=== PATIENT | male | born 1980 | race Two or more races ===

== ENCOUNTER 2018-06-07 12:59 | Emergency (ER) | payer SELFPAY ==
--- NOTE | 2018-06-07 14:54 | EDM.PDOC ---
ED HPI GENERAL MEDICAL PROBLEM - General Chief Complaint: Upper Extremity Injury/Pain Stated Complaint: RIGHT ELBOW PAIN Time Seen by Provider: 06/07/18 13:22 Source of Information: Reports: Patient History Limitations: Reports: No Limitations - History of Present Illness INITIAL COMMENTS - FREE TEXT/NARRATIVE: HISTORY AND PHYSICAL: History of present illness: Patient is a 38-year-old male who presents to the emergency room today with complaints of right elbow pain which has been ongoing for the past month. He has very pinpoint specific pain to the ulnar aspect of his elbow. He denies any injury, trauma or falls. No previous problems with the right elbow. Denies any numbness or tingling of the affected extremity. Has no effect on his ROM, strength and denies any weakness. Patient does voice concern as he does have some some lesions to his testicles. Review of systems: As per history of present illness and below otherwise all systems reviewed and negative. Past medical history: As per history of present illness and as reviewed below otherwise noncontributory. Surgical history: As per history of present illness and as reviewed below otherwise noncontributory. Social history: See social history for further information Family history: As per history of present illness and as reviewed below otherwise noncontributory. Physical exam: General: Well-developed and well-nourished 38-year-old male. Alert and oriented. Nontoxic appearing and in no acute distress. HEENT: Atraumatic, normocephalic, pupils equal and reactive bilaterally, negative for conjunctival pallor or scleral icterus, mucous membranes moist, TMs normal bilaterally, throat clear, neck supple, nontender, trachea midline. No drooling or trismus noted. No meningeal signs. No hot potato voice noted. Lungs: Clear to auscultation, breath sounds equal bilaterally, chest nontender. Heart: S1S2, regular rate and rhythm without overt murmur Abdomen: Soft, nondistended, nontender. Negative for masses or hepatosplenomegaly. Negative for costovertebral tenderness. Pelvis: Stable nontender. Genitourinary: Patient is uncircumcised. There are 3 or 4 small circular lesions with a crater-like center where they had erupted and able to get some serosanguineous fluid he states from them. He describes them as itchy and mildly painful. Appears to have no pattern associated with this. A viral culture was obtained and sent to lab. Rectal: Deferred. Skin: See genitourinary for details. Otherwise skin is intact, warm, dry. No lesions or rashes noted. Extremities: Atraumatic, negative for cords or calf pain. Neurovascular unremarkable. Neuro: Awake, alert, oriented. Cranial nerves II through XII unremarkable. Cerebellum unremarkable. Motor and sensory unremarkable throughout. Exam nonfocal. Notes: X-ray shows no acute fracture or dislocations. Supportive care measures were reviewed and discussed, and encouraged him to follow-up with the orthopedic provider. Lab work is a send out. Patient is aware that we will call if any of these results are positive for require treatment. Diagnostics: Gonorrhea, chlamydia, HSV culture, right elbow xray, RPR Therapeutics: None Prescription: Diclofenac Impression: Testicular Lesions, etiology undetermined Right elbow pain Plan: 1. Avoid activities that cause increased pain to elbow. Please follow up with Orthopedic provider for further management. 2. Several tests have been done for the testicular lesions. These tests are send outs and we will call with results if anything is positive and requires treatment. He may follow up with the urologist for further evaluation and management. 3. Tylenol and/or ibuprofen as needed for pain management. 4. Follow up as we discussed in the next 1-2 days. Return to the ED as needed and as discussed. Definitive disposition and diagnosis as appropriate pending reevaluation and review of above. Right Elbow Pain Score (Numeric/FACES): 6 - Related Data Allergies Allergy/AdvReac Type Severity Reaction Status Date / Time No Known Allergies Allergy Verified 06/07/18 13:35 Home Meds: Home Meds Diclofenac Sodium [Voltaren] 75 mg PO BIDMEALS PRN #30 tab.cr 06/07/18 [Rx] Past Medical History - Past Health History Medical/Surgical History: Denies Medical/Surgical History - Infectious Disease History Infectious Disease History: Reports: Chicken Pox Social & Family History - Family History Family Medical History: Noncontributory - Tobacco Use Smoking Status *Q: Current Every Day Smoker Years of Tobacco use: 20 Packs/Tins Daily: 1 - Recreational Drug Use Recreational Drug Use: Yes Drug Use in Last 12 Months: Yes Recreational Drug Type: Reports: Marijuana/Hashish Recreational Drug Use Frequency: Weekly Review of Systems - Review of Systems Review Of Systems: ROS reveals no pertinent complaints other than HPI. ED EXAM, GENERAL - Physical Exam Exam: See Below (See dictation) Course - Vital Signs Last Recorded V/S: Last Vital Signs Temp 98.2 F 06/07/18 13:31 Pulse 85 06/07/18 13:31 Resp 16 06/07/18 13:31 BP 137/107 H 06/07/18 13:31 Pulse Ox 97 06/07/18 13:31 - Orders/Labs/Meds Orders: Active Orders 24 hr Category Date Time Status CHLAMYDIA AND GONORRHEA BY TMA Stat Lab 06/07/18 14:41 Received RPR (SYPHILIS SERO) W/ RFLX [REF] Stat Lab 06/07/18 15:19 Ordered VIRAL CULTURE, GENERAL Routine Lab 06/07/18 14:45 Received Labs: Laboratory Tests 06/07/18 Range/Units 14:41 Urine Color YELLOW Urine Appearance CLEAR Urine pH 5.5 (5.0-8.0) Ur Specific [place] 1.025 (1.001-1.035) Urine Protein NEGATIVE (NEGATIVE) mg/dL Urine Glucose (UA) NEGATIVE (NEGATIVE) mg/dL Urine Ketones NEGATIVE (NEGATIVE) mg/dL Urine Occult Blood NEGATIVE (NEGATIVE) Urine Nitrite NEGATIVE (NEGATIVE) Urine Bilirubin NEGATIVE (NEGATIVE) Urine Urobilinogen 0.2 (<2.0) EU/dL Ur Leukocyte Esterase NEGATIVE (NEGATIVE) Departure - Departure Time of Disposition: 15:40 Disposition: Home, Self-Care 01 Clinical Impression: Testicular lesion, Elbow pain, right - Discharge Information Prescriptions: Diclofenac Sodium [Voltaren] 75 mg PO BIDMEALS PRN #30 tab.cr PRN Reason: Pain Instructions: Tendinitis, Kieb-fu-Upam Referrals: PCP,None [Primary Care Provider] - Forms: ED Department Discharge Additional Instructions: The following information is given to patients seen in the emergency department who are being discharged to home. This information is to outline your options for follow-up care. We provide all patients seen in our emergency department with a follow-up referral. The need for follow-up, as well as the timing and circumstances, are variable depending upon the specifics of your emergency department visit. If you don't have a primary care physician on staff, we will provide you with a referral. We always advise you to contact your personal physician following an emergency department visit to inform them of the circumstance of the visit and for follow-up with them and/or the need for any referrals to a consulting specialist. The emergency department will also refer you to a specialist when appropriate. This referral assures that you have the opportunity for follow-up care with a specialist. All of these measure are taken in an effort to provide you with optimal care, which includes your follow-up. Under all circumstances we always encourage you to contact your private physician who remains a resource for coordinating your care. When calling for follow-up care, please make the office aware that this follow-up is from your recent emergency room visit. If for any reason you are refused follow-up, please contact the [facility] Emergency Department at and asked to speak to the emergency department charge nurse. [facility] Primary Care [address] [place], [place] [id number] [address] [address] [facility] Specialty Care - Urology [address] [place] [id number] 1. Avoid activities that cause increased pain to elbow. Please follow-up with the orthopedic provider for further management of this pain. 2. Several tests have been done for the testicular lesions. These tests are send outs and we will call with results if anything is positive and requires treatment. He may follow up with the urologist for further evaluation and management. 3. Tylenol and/or ibuprofen as needed for pain management. 4. Follow up as we discussed in the next 1-2 days. Return to the ED as needed and as discussed. - My Orders Last 24 Hours: My Active Orders 06/07/18 14:41 CHLAMYDIA AND GONORRHEA BY TMA Stat 06/07/18 15:19 RPR (SYPHILIS SERO) W/ RFLX [REF] Stat - Assessment/Plan Last 24 Hours: My Active Orders 06/07/18 14:41 CHLAMYDIA AND GONORRHEA BY TMA Stat 06/07/18 15:19 RPR (SYPHILIS SERO) W/ RFLX [REF] Stat
--- NOTE | 2018-06-07 15:34 | CR ---
EXAMINATION: Right elbow HISTORY: Pain COMPARISON: None TECHNIQUE: 3 views FINDINGS/IMPRESSION: There is no acute osseous abnormality, dislocation, or fracture. Bone mineralization and joint spaces are preserved. No soft tissue swelling or joint effusion. Small linear metallic foreign body projecting along the superior aspect of the antecubital fossa.
== END 2018-06-07 15:47 | disposition home or self-care (01) ==
LOC: MW.ED 12:59
DX: M25.521 Pain in right elbow (principal); N50.9 Disorder of male genital organs, unspecified; F17.210 Nicotine dependence, cigarettes, uncomplicated
CPT/HCPCS: 36415; 73080-26-RT; 73080-RT; 81003; 86592; 87252; 87491; 87591; 99283